=== PATIENT | female | born 2000 | race Hispanic/Latino ===

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

== ENCOUNTER → 2018-02-17 | Outpatient (REF) | payer OTHER ==
[2018-02-17 16:23] LABS: CHLAMYDIA DNA AMPLIFICATION NEGATIVE (NEGATIVE); GC DNA AMPLIFICATION NEGATIVE (NEGATIVE)
== END ==
LOC: M LAB REF 14:37
DX: R10.814 Left lower quadrant abdominal tenderness (principal); R30.0 Dysuria

== ENCOUNTER → 2018-02-24 | Outpatient (CLI) | payer OTHER | LOC: M RAD 09:46 | DX: R10.814 Left lower quadrant abdominal tenderness (principal) ==

== ENCOUNTER → 2018-02-26 | Outpatient (CLI) | payer OTHER | LOC: M RAD 13:56 | DX: R10.814 Left lower quadrant abdominal tenderness (principal) | CPT/HCPCS: 76856 ==

== ENCOUNTER 2018-06-24 05:46 | Emergency (ER) | payer OTHER ==
[2018-06-24 07:20] LABS: BASO % 0.5 % (0.0-1.0); EOS # 0.3 10^3/uL (0.0-0.50); EOS % 3.4 % (0.0-3.0); HEMATOCRIT 41.7 % (36.0-47.0); HEMOGLOBIN 14.2 g/dl (12.0-15.5); IMMATURE GRANULOCYTE % 0.2 % (0-3.0); LYMPH # 3.7 10^3/uL (1.5-6.5); LYMPH % 41.8 % (24.0-44.0); MEAN CORPUSCULAR HEMOGLOBIN 29.9 pg (27.0-33.0); MEAN CORPUSCULAR HGB CONC 34.1 g/dl (32.0-36.5); MEAN CORPUSCULAR VOLUME 87.8 fl (80.0-96.0); MONO # 0.5 10^3/uL (0.0-0.8); MONO % 6.1 % (0.0-5.0); NEUTROPHILS # 4.2 10^3/uL (1.8-7.7); PLATELET COUNT, AUTOMATED 315 10^3/uL (150-450); RED BLOOD COUNT 4.75 10^6/uL (4.00-5.40); RED CELL DISTRIBUTION WIDTH 12.1 % (11.5-14.5); WHITE BLOOD COUNT 8.7 10^3/uL (4.0-10.0)
[2018-06-24 07:48] LABS: D-DIMER QUANT < 270 ng/ml (<500)
[2018-06-24 07:49] LABS: ANION GAP 6 MEQ/L (8-16); BLOOD UREA NITROGEN 13 MG/DL (7-18); C REACTIVE PROTEIN QUANTITATIV < 0.30 MG/DL (0.00-0.30); CALCIUM LEVEL 8.5 MG/DL (8.5-10.1); CARBON DIOXIDE LEVEL 27 MEQ/L (21-32); CHLORIDE LEVEL 106 MEQ/L (98-107); CREATININE FOR GFR 0.71 MG/DL (0.55-1.30); GLUCOSE, FASTING 96 MG/DL (70-100); POTASSIUM SERUM 3.8 MEQ/L (3.5-5.1); RHEUMATOID FACTOR QUANT < 10.0 IU/ML (<15.0); SODIUM LEVEL 139 MEQ/L (136-145)
[2018-06-24 08:02] LABS: ERYTHROCYTE SEDIMENTATION RATE 6 mm/hr (0-20)
[2018-06-25 14:13] LABS: ANTINUCLEAR ANTIBODIES DIRECT Negative (Negative)
== END 2018-06-24 08:09 | disposition home or self-care (01) ==
LOC: M ED 05:46
DX: N60.11 Diffuse cystic mastopathy of right breast (principal); N60.12 Diffuse cystic mastopathy of left breast; M25.561 Pain in right knee; M25.562 Pain in left knee; G43.909 Migraine, unspecified, not intractable, without status migrainosus; Z79.3 Long term (current) use of hormonal contraceptives
CPT/HCPCS: 80048

== ENCOUNTER → 2018-11-28 | Outpatient (CLI) | payer OTHER ==
[~2018-11-28] MED LIST: IBUP80TA PO; NAPR-837 PO
--- NOTE | 2018-11-28 12:18 | REP ---
ABDOMEN, FLAT UPRIGHT, PA CHEST, THREE VIEWS: HISTORY: Pain. A small amount of air is present in the intestine. There are no air-fluid levels or dilated loops of intestine. There is no pneumoperitoneum. A mild amount of stool is present in the colon. The lungs are clear. IMPRESSION: nonspecific bowel gas pattern. Electronically Signed by Faisal Peñaloza MD 11/28/2018 12:19 P
[2018-11-28 13:39] LABS: BASO # 0.1 10^3/uL (0.0-0.2); BASO % 0.7 % (0.0-1.0); EOS # 0.1 10^3/uL (0.0-0.50); EOS % 1.6 % (0.0-3.0); HEMATOCRIT 41.2 % (36.0-47.0); HEMOGLOBIN 13.6 g/dl (12.0-15.5); LYMPH # 3.1 10^3/uL (1.5-6.5); LYMPH % 36.1 % (24.0-44.0); MEAN CORPUSCULAR HEMOGLOBIN 29.6 pg (27.0-33.0); MEAN CORPUSCULAR VOLUME 89.6 fl (80.0-96.0); MONO # 0.5 10^3/uL (0.0-0.8); MONO % 5.8 % (0.0-5.0); NEUTROPHILS # 4.8 10^3/uL (1.8-7.7); NEUTROPHILS % 55.5 % (36.0-66.0); PLATELET COUNT, AUTOMATED 377 10^3/uL (150-450); WHITE BLOOD COUNT 8.7 10^3/uL (4.0-10.0)
[2018-11-28 14:00] LABS: ALBUMIN 3.9 GM/DL (3.2-5.2); ALT/SGPT 24 U/L (12-78); AMYLASE 64 U/L (25-115); BILIRUBIN,TOTAL 0.4 MG/DL (0.2-1.0); BLOOD UREA NITROGEN 10 MG/DL (7-18); CALCIUM LEVEL 8.6 MG/DL (8.5-10.1); CARBON DIOXIDE LEVEL 28 MEQ/L (21-32); CHLORIDE LEVEL 107 MEQ/L (98-107); CREATININE FOR GFR 0.69 MG/DL (0.55-1.30); GLUCOSE, FASTING 69 MG/DL (70-100); LIPASE 185 U/L (73-393); POTASSIUM SERUM 4.3 MEQ/L (3.5-5.1); SODIUM LEVEL 139 MEQ/L (136-145); TOTAL PROTEIN 7.4 GM/DL (6.4-8.2)
== END ==
LOC: M WUC 11:25
PROVIDERS: ATTEND Physician Assistant
DX: R07.1 Chest pain on breathing (principal); R14.0 Abdominal distension (gaseous)

== ENCOUNTER 2019-06-14 18:45 | Emergency (ER) | payer OTHER ==
[~2019-06-14] VITALS: Ht 162.6 cm; Wt 61.8 kg
[2019-06-14] MEDS ORDERED: KETOROLAC 30 MG/ML VIAL (J1885) IV ONE (19:30)
[2019-06-14] MEDS ORDERED: DICYCLOMINE 10 MG CAP PO ONE (19:30)
[2019-06-14] MEDS ORDERED: ONDANSETRON 4MG/2ML VIAL (J2405) IV ONE (19:30)
[2019-06-14] MEDS ORDERED: NS 1,000 ML IV ONE (19:30)
[2019-06-14 19:43] LABS: BASO % 0.2 % (0.0-1.0); EOS % 0.1 % (0.0-3.0); HEMATOCRIT 42.9 % (36.0-47.0); LYMPH # 0.4 10^3/uL (1.5-5.0); MEAN CORPUSCULAR HEMOGLOBIN 29.4 pg (27.0-33.0); MEAN CORPUSCULAR HGB CONC 32.6 g/dl (32.0-36.5); MEAN CORPUSCULAR VOLUME 90.1 fl (80.0-96.0); MONO # 0.5 10^3/uL (0.0-0.8); MONO % 3.1 % (0.0-5.0); NEUTROPHILS # 13.3 10^3/uL (1.5-8.5); NEUTROPHILS % 93.1 % (36.0-66.0); PLATELET COUNT, AUTOMATED 333 10^3/uL (150-450); RED BLOOD COUNT 4.76 10^6/uL (4.00-5.40); WHITE BLOOD COUNT 14.3 10^3/uL (4.0-10.0)
[2019-06-14 20:10] LABS: ALT/SGPT 29 U/L (12-78); BILIRUBIN,DIRECT 0.2 MG/DL (0.0-0.2); BILIRUBIN,TOTAL 0.8 MG/DL (0.2-1.0); BLOOD UREA NITROGEN 13 MG/DL (7-18); CALCIUM LEVEL 8.8 MG/DL (8.5-10.1); CARBON DIOXIDE LEVEL 26 MEQ/L (21-32); CHLORIDE LEVEL 109 MEQ/L (98-107); CREATININE FOR GFR 0.68 MG/DL (0.55-1.30); GLOMERULAR FILTRATION RATE > 60.0 (>60); GLUCOSE, FASTING 101 MG/DL (70-100); LIPASE 107 U/L (73-393); POTASSIUM SERUM 4.2 MEQ/L (3.5-5.1); SODIUM LEVEL 141 MEQ/L (136-145); TOTAL PROTEIN 7.3 GM/DL (6.4-8.2)
[2019-06-14] MEDS ORDERED: ACETAMINOPHEN 325 MG TAB PO ONE (20:15)
[2019-06-14] MEDS ORDERED: ACETAMINOPHEN 325 MG TAB As Ordered ONE (20:16)
--- NOTE | 2019-06-14 22:05 | REPVR ---
PROCEDURE INFORMATION: Exam: US First Trimester, Transabdominal Exam date and time: 06/14/2019 9:33 PM Clinical history: 19 years old, female; complicated by abdominal or pelvic pain; Generalized abdominal pain; First trimester; Gestational age or lmp: 05/07/19; ; Additional info: Vag bleeding, pelvic pain, +hcg TECHNIQUE: Imaging protocol: Real-time transabdominal obstetrical ultrasound of the maternal pelvis and a first trimester , less than 14 weeks 0 days, with image documentation. COMPARISON: GALLBLADDER US 06/14/2019 9:02 PM FINDINGS: GESTATION: Gestation: See Uterus Finding. MATERNAL: Uterus: The uterus measures 9.9 cm in its cephalocaudad dimension and 4.5 x 6.3 cm in its AP and lateral dimensions transabdominal. The uterus measures 9.3 cm in its cephalocaudad dimension and 4.5 cm in its AP dimension transvaginal. The endometrium measures 3 mm transabdominal and 6 mm transvaginal. No intrauterine gestational sac. Cervix: Unremarkable. Right adnexa: The right ovary measures 4.6 x 1.6 x 3.4 cm and demonstrates arterial and venous blood flow. Left adnexa: The left ovary measures 3.2 x 3.8 x 2.5 cm and demonstrates arterial and venous blood flow. Intraperitoneal: No significant intraperitoneal free fluid. IMPRESSION: 1. No intrauterine gestational sac is identified. Findings may reflect recent spontaneous AB. Ectopic is not excluded. Serial beta hCG levels may be of benefit for further evaluation. 2. Otherwise negative pelvic sonogram. Electronically signed by: Benson Flynn On 06/14/2019 22:05:26 PM
--- NOTE | 2019-06-14 22:09 | REPVR ---
PROCEDURE INFORMATION: Exam: US Abdomen Limited, Right Upper Quadrant Exam date and time: 06/14/2019 9:33 PM Clinical history: 19 years old, female; Abdominal pain; Acute; ; Additional info: Epigastric pain, nv TECHNIQUE: Imaging protocol: Real-time ultrasound of the abdomen with image documentation. Examination was focused on the right upper quadrant. COMPARISON: No relevant prior studies available. FINDINGS: Liver: The liver demonstrates no focal defects. Gallbladder: The gallbladder demonstrates no stones and no wall thickening measuring 2-3 mm. Common bile duct: The CBD measures 3 mm. Pancreas: There is limited visualization of the pancreas which is primarily obscured by gas with no gross abnormalities. Right kidney: The right kidney is normal with no hydronephrosis and measures 11.1 cm. IMPRESSION: Negative right upper quadrant sonogram. Electronically signed by: Benson Flynn On 06/14/2019 22:09:23 PM
[2019-06-14] MEDS ORDERED: ONDA4TAB6 PO (22:40)
[2019-06-14 23:01] VITALS: BP 121/56
[2019-06-14 23:03] LABS: HCG, SERUM QUANTITATIVE 2438 MIU/ML
== END 2019-06-14 23:02 | disposition home or self-care (01) ==
LOC: M ED 18:45
DX: O20.8 Other hemorrhage in early pregnancy (principal); O26.891 Other specified pregnancy related conditions, first trimester
CPT/HCPCS: 36415; 76705; 76801; 76817; 80048; 80076; 81001; 83690; 84702; 85025; 93976; 96361; 96374; 99284; J2405

== ENCOUNTER → 2019-06-16 | Outpatient (CLI) | payer OTHER ==
[~2019-06-16] MED LIST changes: +ONDA4TAB6 PO
== END ==
LOC: M LAB 09:50
PROVIDERS: ATTEND Physician Assistant
DX: O20.9 Hemorrhage in early pregnancy, unspecified (principal); Z3A.00 Weeks of gestation of pregnancy not specified